=== PATIENT | male | born 1990 | race Caucasian/White ===

== ENCOUNTER 2016-05-10 10:06 | Inpatient (IN) | payer MEDICAID ==
[~2016-05-10] VITALS: Ht 172.7 cm; Wt 68.0 kg
[2016-05-10 14:54] LABS: Albumin 3.1 g/dL (3.4-5.0); BUN/Creatinine Ratio 9.5; Bilirubin, Total 0.3 mg/dL (0.2-1.0); Calcium 8.7 mg/dL (8.5-10.1); Total Protein 8.1 g/dL (6.4-8.2)
[2016-05-10 15:03] LABS: INR 1.14 (0.9-1.15); Partial Thromboplastin Time 29.9 sec (22.64-33.71); Prothrombin Time 11.7 sec (9.37-12.3)
[2016-05-10] MEDS ORDERED: SODIUM CHLORIDE 0.9% 1,000 ML IVB ONE (15:31)
[2016-05-10 15:40] LABS: Basophils # (auto) 0.1 uL; Basophils % (auto) 0.7 % (0.0-2.0); DEFINITIVE VIEW TRANSMISSION; Eosinophils # (auto) 0.9 uL; Eosinophils % (auto) 7.5 % (0.0-7.0); Hematocrit 34.8 % (41.0-53.0); Hemoglobin 11.1 g/dL (13.5-17.5); Lymphocytes # (auto) 1.1 uL; Lymphocytes % (auto) 9.5 % (10.0-50.0); Mean Corpuscular Hemoglobin 25.9 pg (28.0-32.0); Mean Corpuscular Hgb Conc. 31.8 g/dL (32.0-36.0); Mean Corpuscular Volume 81.7 fL (80.0-100.0); Mean Platelet Volume 7.5 fL (7.4-10.4); Monocytes # (auto) 0.7 uL; Neutrophils # (auto) 9.1 uL; Neutrophils % (auto) 76.3 % (37.0-80.0); Platelet Count (auto) 531 10^3/uL (140-450); Red Cell Distribution Width 13.2 % (11.6-16.0); White Blood Cell 11.9 10^3/uL (4.4-10.8)
[2016-05-10] MEDS ORDERED: PROMETHAZINE HCL 25 MG/ML 1ML IV ONE (15:45)
[2016-05-10] MEDS ORDERED: NALBUPHINE HCL 10 MG/1ml INJECTION IV ONE (15:45)
[2016-05-10 16:18] LABS: Magnesium 2.6 mg/dL (1.6-2.6)
[2016-05-10 16:45] LABS: Urine RBC None Seen /hpf (0 - 3)
[2016-05-10 17:09] LABS: Urine Bilirubin Negative (Negative); Urine Blood Negative /uL (Negative); Urine Color Yellow (Yellow); Urine Glucose Normal (Normal); Urine Ketone Negative (Negative); Urine Mucus FEW (None Seen); Urine Nitrite Negative (Negative); Urine Urobilinogen Normal (Negative); Urine pH 6.5 (5.0-8.0)
[2016-05-10] MEDS ORDERED: DEXAMETHASONE SOD PHOS 4 MG/1ML SDV INJ IV ONE (18:00)
[2016-05-10] MEDS ORDERED: SULFASALAZINE 500 MG TAB PO ONE (18:00)
[2016-05-10 18:27] LABS: Potassium 3.9 mmol/L (3.5-5.1)
[2016-05-10] MEDS ORDERED: MORPHINE SULF INJ 2 MG/ML SYRINGE 1ML IV PRN (18:30)
[2016-05-10] MEDS ORDERED: ACETAMINOPHEN 500 MG TAB PO PRN (18:30)
[2016-05-10] MEDS ORDERED: NITROGLYCERIN 0.4 MG SL TAB SL PRN (18:30)
[2016-05-10] MEDS ORDERED: TEMAZEPAM 15 MG CAP PO PRN (18:30)
[2016-05-10] MEDS ORDERED: PROMETHAZINE HCL 25 MG/ML 1ML IV PRN (18:30)
[2016-05-10] MEDS ORDERED: LEVOFLOXACIN 500MG 100 ML IV ONE (18:30)
[2016-05-10] MEDS ORDERED: LORazepam 0.5 MG TAB PO PRN (18:30)
[2016-05-10] MEDS: MORPHINE SULF INJ 2 MG/ML SYRINGE 1ML IV PRN ×2 (18:36→23:06)
[2016-05-10] MEDS: SODIUM CHLORIDE 0.9% 1,000 ML IV SCH (18:43)
[2016-05-10 22:06] VITALS: BP 121/65
[2016-05-10 22:13] LABS: Hypochromia Slight; Platelet Estimate Increased
[2016-05-10 22:25] VITALS: BP 121/65
[2016-05-10] MEDS: HYDROCORTISONE SOD SUCC 100 MG/2ML INJ VIAL IV SCH (23:06)
[2016-05-11] MEDS: metroNIDAZOLE 500MG/100ML 100 ML IV SCH ×5 (00:48→23:49)
[2016-05-11 00:54] LABS: Hematocrit 32.5 % (41.0-53.0); Hemoglobin 10.4 g/dL (13.5-17.5)
[2016-05-11] MEDS: HYDROcodone-ACET 5/325MG TAB PO PRN ×3 (01:17→20:53)
[2016-05-11] MEDS: SODIUM CHLORIDE 0.9% 1,000 ML IV SCH ×2 (04:17→13:02)
[2016-05-11 05:30] VITALS: BP 110/68
[2016-05-11] MEDS: HYDROCORTISONE SOD SUCC 100 MG/2ML INJ VIAL IV SCH (05:45)
[2016-05-11] MEDS: MORPHINE SULF INJ 2 MG/ML SYRINGE 1ML IV PRN ×4 (06:08→23:50)
[2016-05-11 06:34] LABS: Basophils # (auto) 0 uL; Basophils % (auto) 0.1 % (0.0-2.0); DEFINITIVE VIEW TRANSMISSION; Eosinophils # (auto) 0 uL; Hematocrit 33.3 % (41.0-53.0); Hemoglobin 10.3 g/dL (13.5-17.5); Lymphocytes # (auto) 0.5 uL; Lymphocytes % (auto) 4.7 % (10.0-50.0); Mean Corpuscular Hemoglobin 25.4 pg (28.0-32.0); Mean Corpuscular Hgb Conc. 30.9 g/dL (32.0-36.0); Mean Corpuscular Volume 82.1 fL (80.0-100.0); Mean Platelet Volume 7.3 fL (7.4-10.4); Monocytes # (auto) 0.1 uL; Monocytes % (auto) 1.2 % (0.0-12.0); Neutrophils # (auto) 9.4 uL; Platelet Count (auto) 498 10^3/uL (140-450); White Blood Cell 10.1 10^3/uL (4.4-10.8)
[2016-05-11 08:06] LABS: Potassium 4.1 mmol/L (3.5-5.1)
[2016-05-11 08:30] LABS: Albumin 2.6 g/dL (3.4-5.0); BUN/Creatinine Ratio 6.5; Calcium 8.4 mg/dL (8.5-10.1)
[2016-05-11 08:33] LABS: Bilirubin, Total 0.2 mg/dL (0.2-1.0); Total Protein 7.4 g/dL (6.4-8.2)
[2016-05-11 09:15] VITALS: BP 109/63
[2016-05-11] MEDS: PANTOPRAZOLE 40 MG TAB PO SCH (10:02)
[2016-05-11] MEDS: LEVOFLOXACIN 500MG 100 ML IV SCH (10:02)
[2016-05-11] MEDS: SULFASALAZINE 500 MG TAB PO SCH ×3 (12:20→21:56)
[2016-05-11 12:21] LABS: Hematocrit 31.5 % (41.0-53.0); Hemoglobin 9.7 g/dL (13.5-17.5)
[2016-05-11 13:07] VITALS: BP 122/67
[2016-05-11 17:19] VITALS: BP 120/58
[2016-05-11 20:00] VITALS: BP 125/59
[2016-05-11 21:44] VITALS: BP 125/59
[2016-05-12] MEDS: SODIUM CHLORIDE 0.9% 1,000 ML IV SCH (00:31)
[2016-05-12] MEDS: MORPHINE SULF INJ 2 MG/ML SYRINGE 1ML IV PRN ×4 (04:20→20:32)
[2016-05-12 04:42] VITALS: BP 154/98
[2016-05-12 04:46] VITALS: BP 131/67
[2016-05-12] MEDS: SULFASALAZINE 500 MG TAB PO SCH ×4 (06:03→21:33)
[2016-05-12] MEDS: metroNIDAZOLE 500MG/100ML 100 ML IV SCH ×2 (06:04→12:13)
[2016-05-12] MEDS: HYDROcodone-ACET 5/325MG TAB PO PRN ×3 (06:09→18:15)
[2016-05-12 06:17] LABS: Basophils # (auto) 0 uL; Basophils % (auto) 0.3 % (0.0-2.0); DEFINITIVE VIEW TRANSMISSION; Eosinophils # (auto) 0 uL; Eosinophils % (auto) 0.2 % (0.0-7.0); Hematocrit 28.5 % (41.0-53.0); Hemoglobin 8.8 g/dL (13.5-17.5); Lymphocytes # (auto) 1.1 uL; Lymphocytes % (auto) 11.8 % (10.0-50.0); Mean Corpuscular Hemoglobin 25.4 pg (28.0-32.0); Mean Corpuscular Volume 82.2 fL (80.0-100.0); Monocytes # (auto) 0.6 uL; Monocytes % (auto) 6.8 % (0.0-12.0); Neutrophils # (auto) 7.6 uL; Neutrophils % (auto) 80.9 % (37.0-80.0); Platelet Count (auto) 463 10^3/uL (140-450); Red Cell Distribution Width 14.1 % (11.6-16.0); White Blood Cell 9.4 10^3/uL (4.4-10.8)
[2016-05-12 06:37] LABS: BUN/Creatinine Ratio 7.1; Calcium 7.6 mg/dL (8.5-10.1); Potassium 3.4 mmol/L (3.5-5.1)
[2016-05-12] MEDS ORDERED: POTASSIUM CHL 20 Meq TABLET PO ONE (08:45)
[2016-05-12 09:00] VITALS: BP 144/96
[2016-05-12] MEDS: predniSONE 20 MG TAB PO SCH (10:03)
[2016-05-12] MEDS: PANTOPRAZOLE 40 MG TAB PO SCH (10:03)
[2016-05-12] MEDS: LEVOFLOXACIN 500MG 100 ML IV SCH (10:04)
[2016-05-12 13:00] VITALS: BP 115/59
[2016-05-12 17:32] VITALS: BP 117/71
[2016-05-12] MEDS: PRO-STAT 64 30ML PO SCH (18:16)
[2016-05-12 21:30] VITALS: BP 112/52
[2016-05-13] MEDS: HYDROcodone-ACET 5/325MG TAB PO PRN ×2 (00:18→10:05)
[2016-05-13] MEDS: MORPHINE SULF INJ 2 MG/ML SYRINGE 1ML IV PRN (04:16)
[2016-05-13 04:49] VITALS: BP 119/65
[2016-05-13 06:04] LABS: Hematocrit 30.3 % (41.0-53.0); Hemoglobin 9.4 g/dL (13.5-17.5)
[2016-05-13] MEDS: SULFASALAZINE 500 MG TAB PO SCH (06:11)
[2016-05-13 06:24] LABS: Potassium 3.9 mmol/L (3.5-5.1)
[2016-05-13 06:26] LABS: BUN/Creatinine Ratio 9.1; Calcium 8.5 mg/dL (8.5-10.1)
[2016-05-13] MEDS: PRO-STAT 64 30ML PO SCH (08:00)
[2016-05-13] MEDS: predniSONE 20 MG TAB PO SCH (10:04)
[2016-05-13] MEDS: PANTOPRAZOLE 40 MG TAB PO SCH (10:05)
[2016-05-13 11:37] VITALS: BP 121/73
== END 2016-05-13 14:05 | disposition home or self-care (01) | DRG 245 ==
LOC: ER 10:08 → TELE 10:09 → TELE-CENTR 20:03 → CENTRAL 05-11 11:49
PROVIDERS: ADMIT Internal Medicine; ATTEND Internal Medicine
DX: K51.911 Ulcerative colitis, unspecified with rectal bleeding (principal); E09.65 Drug or chemical induced diabetes mellitus with hyperglycemia; K92.2 Gastrointestinal hemorrhage, unspecified; D62 Acute posthemorrhagic anemia; L98.9 Disorder of the skin and subcutaneous tissue, unspecified; G89.29 Other chronic pain; M54.9 Dorsalgia, unspecified; M13.0 Polyarthritis, unspecified; T38.0X5A Adverse effect of glucocorticoids and synthetic analogues, initial encounter; Y92.89 Other specified places as the place of occurrence of the external cause
CPT/HCPCS: 36415; 71020; 72100; 74176; 80048; 80053; 80061; 81001; 82150; 82270; 83690; 83735; 84443; 85014; 85018; 85025; 85045; 85610; 85652; 85730; 86141; 86850; 86900; 86901; 87493; 96361; 96374; 96375; J1100; J1956; J3490